=== PATIENT | female | born 1980 | race Caucasian/White ===

== ENCOUNTER 2016-07-12 16:48 | Emergency (ER) | payer BC ==
[~2016-07-12] VITALS: Ht 172.7 cm; Wt 101.9 kg
[~2016-07-12 16:48] MED LIST: CITA40TA12 PO; FRRS300 PO; PRENTAB26 PO; TOPI100T20 PO
[2016-07-12 16:52] VITALS: TEMP 36.9; Ht 172.7 cm; Wt 101.9 kg
[2016-07-12] MEDS ORDERED: DIVA500T59 PO (17:02)
[2016-07-12] MEDS ORDERED: DiphenhydrAMINE HCL 50 MG/ML VIAL IV STA (17:28)
[2016-07-12] MEDS ORDERED: PROCHLORPERAZINE 5 MG/ML 2 ML VIAL IV STA (17:28)
[2016-07-12] MEDS ORDERED: KETOROLAC TROMETHAMINE 30 MG/ML VIAL IV STA (17:28)
[2016-07-12 17:59] LABS: BASO ABS # 0.06 K/uL (0-0.2); COMPLETE YES; EOS % 2.8 %; HEMATOCRIT 38.7 % (37-47); IG% 0.3 %; LYMPH ABS # 2.01 K/uL (1.2-3.4); MEAN CELL VOLUME 91.1 fL (80-100); MEAN CORPUSCULAR HEMOGLOBIN 31.3 pg (25-34); MEAN CORPUSCULAR HGB CONC 34.4 g/dl (32-36); MEAN PLATELET VOLUME 11.4 fL (7.4-10.4); NEUT % 50.9 %; PLATELET COUNT 161 K/uL (130-400); RED BLOOD COUNT 4.25 M/uL (4.2-5.4)
[2016-07-12 18:09] LABS: BUN/CREATININE RATIO 14.1 (10-20); CALCIUM 9.1 mg/dl (8.5-10.1); CREATININE 0.98 mg/dl (0.60-1.20); POTASSIUM 3.9 mmol/L (3.5-5.1)
[2016-07-12] MEDS ORDERED: MAGNESIUM SULFATE 1GM / D5W 1 GM BAG IV STA (18:27)
--- NOTE | 2016-07-12 18:30 | DIAGNOSTIC IMAGING REPORT ---
HEAD CT NONCONTRAST CT DOSE: 537.48 mGy.cm HISTORY: Headache. TECHNIQUE: Multiaxial CT images of the head were performed without the use of intravenous contrast. Automated exposure control was utilized for this study. Comparison: Head CT 07/23/2012. Findings: The paranasal sinuses and mastoid air cells are clear. The calvarium and skull base are intact. The ventricles and sulci are within normal limits. There is no mass, hematoma, midline shift, or acute infarct. Impression: No acute intracranial abnormality. Electronically signed by: Samym Bazan M.D. 07/12/2016 6:28 PM Dictated Date/Time: 07/12/2016 6:25 PM
[2016-07-12 20:17] VITALS: BP 116/74; PULSE 86; O2SAT 96
--- NOTE | 2016-07-12 23:20 | EMERGENCY ROOM VISIT NOTE ---
History Report prepared by Maureen: Zion Viveros Under the Supervision of: Dr. Margarito Medel D.O. First contact with patient: 17:02 Chief Complaint: HEADACHE Stated Complaint: MIGRAINE, SEVERE PRESSURE LT SIDE-DR REFERRED History of Present Illness The patient is a 36 year old female who presents to the Emergency Room with complaints of a waxing and waning left-sided headache beginning one month prior to arrival. She describes the pain as pressure and currently rates her discomfort as 7/10 in severity. The patient associates worsening vision in her left eye which has been waxing and waning with worsening of her headache for the past several weeks. She notes she has been experiencing migraines since 2010 , and she has been following with her neurologist since that time. The patient states her migraines have been worsening over the past six months. She notes her vision has been worsening over the past several weeks, but has been experiencing symptoms for over a year. The patient states it takes a longer amount of time for her left eye to focus. She notes she takes Depakote twice a day and was switched onto the medication two months ago after previously being on Topamax. The patient states she called her neurologist's office yesterday, who referred the patient to the ED. She notes she tested positive for Lyme Disease over a month ago, as well. Pt denies fevers, numbness or weakness in the arms or legs, chest pain, shortness of breath, nausea, vomiting, diarrhea, pain with urination, and melena. Source of History: patient Onset: one month [employer] Position: head (left sided) Quality: pressure Timing: waxes/wanes Associated Symptoms: + headache Note: Associated symptoms: worsening vision in left eye where it takes longer to focus. Review of Systems See HPI for pertinent positives & negatives. A total of 10 systems reviewed and were otherwise negative. Past Medical & Surgical Medical Problems: (1) ACL tear (2) Bronchitis (3) Lyme disease (4) Pneumonia (5) Post-dates (6) Uterine contractions at greater than 20 weeks of gestation Family History Cancer Diabetes mellitus Gallbladder disease Hypertension Kidney disease Kidney stones Social History Smoking Status: Former Smoker Alcohol Use: none Marital Status: Housing Status: lives with family Current/Historical Medications Scheduled Citalopram Hydrobromide (Celexa), 1 TAB PO DAILY Divalproex Sodium (Depakote), 1 TAB PO BID Allergies Coded Allergies: Sumatriptan (Verified Allergy, Severe, throat closes up, 07/12/16) Physical Exam Vital Signs Date Time Temp Pulse Resp B/P Pulse Ox O2 Delivery O2 Flow Rate FiO2 07/12/16 20:17 86 18 116/74 96 07/12/16 19:16 75 07/12/16 18:44 82 16 128/66 96 Room Air 07/12/16 16:52 36.9 83 18 155/88 96 Room Air Physical Exam GENERAL: sitting up in bed, disheveled, no acute distress, non-toxic. EYE EXAM: normal conjunctiva, PERRL and EOM's intact OROPHARYNX: no exudate, no erythema, lips, buccal mucosa, and tongue normal and mucous membranes are moist NECK: Negative Brudzinski. Supple, no nuchal rigidity, no adenopathy, non-tender LUNGS: Clear to auscultation. Normal chest wall mechanics HEART: no murmurs, S1 normal and S2 normal ABDOMEN: abdomen soft, non-tender, normo-active bowel sounds, no masses, no rebound or guarding. BACK: Back is symmetrical on inspection and there is no deformity, no midline tenderness, no CVA tenderness. SKIN: no rashes and no bruising UPPER EXTREMITIES: upper extremities are grossly normal. LOWER EXTREMITIES: No pitting edema. NEURO EXAM: Normal sensorium, cranial nerves II-XII intact, normal speech, no weakness of arms, no weakness of legs. No drift. Finger to nose intact. Gross sensation intact. Medical Decision & Procedures ER Provider Diagnostic Interpretation: CT:Per my review, radiologist interpretation. HEAD CT NONCONTRAST CT DOSE: 537.48 mGy.cm HISTORY: Headache. TECHNIQUE: Multiaxial CT images of the head were performed without the use of intravenous contrast. Automated exposure control was utilized for this study. Comparison: Head CT 07/23/2012. Findings: The paranasal sinuses and mastoid air cells are clear. The calvarium and skull base are intact. The ventricles and sulci are within normal limits. There is no mass, hematoma, midline shift, or acute infarct. Impression: No acute intracranial abnormality. Electronically signed by: Sammy Bazan M.D. 07/12/2016 6:28 PM Laboratory Results 07/12/16 17:30 Red Blood Count 4.25, Mean Corpuscular Volume 91.1, Mean Corpuscular Hemoglobin 31.3, Mean Corpuscular Hemoglobin Concent 34.4, Mean Platelet Volume 11.4, Neutrophils (%) (Auto) 50.9, Lymphocytes (%) (Auto) 33.0, Monocytes (%) (Auto) 12.0, Eosinophils (%) (Auto) 2.8, Basophils (%) (Auto) 1.0, Neutrophils # (Auto ) 3.11, Lymphocytes # (Auto) 2.01, Monocytes # (Auto) 0.73, Eosinophils # (Auto ) 0.17, Basophils # (Auto) 0.06 07/12/16 17:30 Test 07/12/16 17:30 White Blood Count 6.10 K/uL (4.8-10.8) Red Blood Count 4.25 M/uL (4.2-5.4) Hemoglobin 13.3 g/dL (12.0-16.0) Hematocrit 38.7 % (37-47) Mean Corpuscular Volume 91.1 fL (80-100) Mean Corpuscular Hemoglobin 31.3 pg (25-34) Mean Corpuscular Hemoglobin Concent 34.4 g/dl (32-36) Platelet Count 161 K/uL (130-400) Mean Platelet Volume 11.4 fL (7.4-10.4) Neutrophils (%) (Auto) 50.9 % Lymphocytes (%) (Auto) 33.0 % Monocytes (%) (Auto) 12.0 % Eosinophils (%) (Auto) 2.8 % Basophils (%) (Auto) 1.0 % Neutrophils # (Auto) 3.11 K/uL (1.4-6.5) Lymphocytes # (Auto) 2.01 K/uL (1.2-3.4) Monocytes # (Auto) 0.73 K/uL (0.11-0.59) Eosinophils # (Auto) 0.17 K/uL (0-0.5) Basophils # (Auto) 0.06 K/uL (0-0.2) RDW Standard Deviation 43.3 fL (36.4-46.3) RDW Coefficient of Variation 13.0 % (11.5-14.5) Immature Granulocyte % (Auto) 0.3 % Immature Granulocyte # (Auto) 0.02 K/uL (0.00-0.02) Anion Gap 6.0 mmol/L (3-11) Est Creatinine Clear Calc Drug Dose 100.0 ml/min Estimated GFR () 86.6 Estimated GFR (Non- 74.7 BUN/Creatinine Ratio 14.1 (10-20) Calcium Level 9.1 mg/dl (8.5-10.1) Chemistry Specimen Hemolysis Laboratory results per my review. Medications Administered Medications (Trade) Dose Ordered Sig/[place] Route Start Time Stop Time Status Last Admin Dose Admin Diphenhydramine HCl (Benadryl Inj) 50 mg NOW STAT IV 07/12/16 17:28 07/12/16 17:29 DC 07/12/16 17:44 50 MG Prochlorperazine Edisylate (Compazine Inj) 5 mg NOW STAT IV 07/12/16 17:28 07/12/16 17:29 DC 07/12/16 17:42 5 MG Ketorolac Tromethamine (Toradol Inj) 30 mg NOW STAT IV 07/12/16 17:28 07/12/16 17:29 DC 07/12/16 17:42 30 MG Magnesium Sulfate (Magnesium Sulfate) 1 gm NOW STAT IV 07/12/16 18:27 07/12/16 18:28 DC 07/12/16 18:43 1 GM ED Course ED COURSE: Vital signs were reviewed and showed hypertension. The patients medical record was reviewed The above diagnostic studies were performed and reviewed. ED treatments and interventions as stated above. 1703: The patient was evaluated in room C1B. A complete history and physical examination was performed. 1728: Ordered Toradol Inj 30 mg IV, Compazine Inj 5 mg IV, Benadryl Inj 50 mg IV. 1758: Updated the patient at this time. 1822: Reevaluated the patient at this time. 1826: Ordered Magnesium Sulfate 1 gm IV. 1920: Reevaluated and updated the patient at this time. She notes her vision is currently back to normal. The patient states her vision waxes and wanes as the headache worsens. 2000: Upon reevaluation, the patient is doing well.I discussed my findings with the patient and she understands and agrees with the treatment plan. Based on the patients age, coexisting illnesses, exam and lab findings the decision to treat as an outpatient was made. The patient remained stable while under my care. The patient appeared well at the time of discharge. Medical Decision Differential Diagnosis includes but is not limited to headache, tension headache , cluster headache, migraine, subarachnoid hemorrhage, meningitis, mass, central venous thrombus, concussion, trauma and epidural/subdural hemorrhage. Patient is a 36-year-old female who presents the ER for headache. She notes that she has been getting these headaches since 2010. Recently over the past several months they have been worsening. She gets them every day and this headache is unchanged from her typical headaches. She does admit that it is associated with trouble focusing initially out of her left eye and that this waxes and wanes with intensity of her headache. She was referred in by the nurse of her neurologist. She was supposed be seen yesterday but decided to come in today. No fevers. She is completely neurologically intact on exam. Discussed with neurology and they agree with plan of fluids, Toradol, Benadryl, Compazine, magnesium and CT. Workup was unremarkable. Patient was feeling significant better was discharged follow-up with her neurologist. Discussed with Pt concerning signs and symptoms to watch out for. Pt was instructed to follow up with their PCP and discussed with the patient their option to return to the ED at anytime for persistent or worsening symptoms. The appropriate anticipatory guidance and out-patient management, including indications for return to the emergency department, were explained at length to the patient and understood. Impression Primary Impression: Headache Scribe Attestation The scribe's documentation has been prepared under my direction and personally reviewed by me in its entirety. I confirm that the note above accurately reflects all work, treatment, procedures, and medical decision making performed by me. Departure Information Dispostion Home / Self-Care Referrals No Doctor, Assigned (PCP) Forms HOME CARE DOCUMENTATION FORM, IMPORTANT VISIT INFORMATION Patient Instructions Headache Pain, My [facility] Additional Instructions Please follow up with your primary care doctor with in the next 24 hours. Any worsening of your symptoms, please return to the ED immediately. This includes weakness or numbness in arms or legs, change in vision, confusion, or any other concerning signs or symptoms from your standpoint. Please follow up with neurology tomorrow in regards to increasing your Depakote. Problem Qualifiers Primary Impression: Headache Headache type: unspecified Headache chronicity pattern: acute headache Intractability: not intractable Qualified Codes: R51 - Headache
== END 2016-07-12 20:17 | disposition home or self-care (01) ==
LOC: C.EDB 16:51 → C.EDC 20:17
DX: R51 Headache (principal); H53.9 Unspecified visual disturbance; A69.20 Lyme disease, unspecified; Z87.891 Personal history of nicotine dependence; Z83.3 Family history of diabetes mellitus; Z82.49 Family history of ischemic heart disease and other diseases of the circulatory system; Z84.1 Family history of disorders of kidney and ureter

== ENCOUNTER 2017-06-29 06:49 | Observation (INO) | payer BC, OTHER ==
[2017-06-19 12:59] VITALS: Ht 172.7 cm; Wt 105.5 kg
--- NOTE | 2017-06-19 13:23 | PAT Medication Instructions ---
Service Date Jun 19, 2017. Current Home Medication List Citalopram Hydrobromide (Celexa), 1 TAB PO QPM Propranolol La (Inderal La), 120 MG PO BID Medication Instructions For Your Scheduled Surgery - Take the following medications the morning of surgery with a sip of water: Propranolol La (Inderal La), 120 MG PO BID - Take the following medications as scheduled the night before surgery: Citalopram Hydrobromide (Celexa), 1 TAB PO QPM Propranolol La (Inderal La), 120 MG PO BID If you have any questions please call us at [phone] or [phone] or [phone]
[2017-06-19 15:38] LABS: BASO % 0.5 %; BASO ABS # 0.04 K/uL (0-0.2); EOS % 2.2 %; EOS ABS # 0.17 K/uL (0-0.5); HEMATOCRIT 42.6 % (37-47); HEMOGLOBIN 14.6 g/dL (12.0-16.0); IG# 0.02 K/uL (0.00-0.02); LYMPH % 25.3 %; LYMPH ABS # 1.99 K/uL (1.2-3.4); MEAN CELL VOLUME 89.5 fL (80-100); MEAN CORPUSCULAR HEMOGLOBIN 30.7 pg (25-34); MEAN CORPUSCULAR HGB CONC 34.3 g/dl (32-36); MONO % 7.5 %; MONO ABS # 0.59 K/uL (0.11-0.59); NEUT % 64.2 %; NEUT ABS # 5.06 K/uL (1.4-6.5); PLATELET COUNT 215 K/uL (130-400); RED CELL DISTRIBUTION WIDTH CV 13.1 % (11.5-14.5); WHITE BLOOD COUNT 7.87 K/uL (4.8-10.8)
[2017-06-19 16:32] LABS: ALBUMIN 3.8 gm/dl (3.4-5.0); CALCIUM 8.9 mg/dl (8.5-10.1); POTASSIUM 3.7 mmol/L (3.5-5.1)
[2017-06-19 16:35] LABS: TOTAL PROTEIN 7.6 gm/dl (6.4-8.2)
[2017-06-29] VITALS (8 sets, daily range): BP systolic 97–140; BP diastolic 50–69; PULSE 81–101; TEMP 37–37.3; O2SAT 95–98
[~2017-06-29] VITALS: Ht 172.7 cm; Wt 105.5 kg
[~2017-06-29 06:49] MED LIST changes: +CEFAZOLIN 2000MG IV PUSH 15 ML IV SCH; -FRRS300 PO; +INDSR/120 PO; +LACTATED RINGER'S 1000ML 1,000 ML IV SCH; -PRENTAB26 PO; -TOPI100T20 PO
[2017-06-29] MEDS ORDERED: ONDANSETRON INJ 2 MG/ML 2 ML VIAL ONE ×2 (07:13→10:34)
[2017-06-29] MEDS ORDERED: LIDOCAINE HCL 2% 2 ML VIAL (20MG/ML) ONE (07:13)
[2017-06-29] MEDS ORDERED: PROPOFOL IV EMULSION 10 MG/ML 20 ML VIAL IV ONE (07:13)
[2017-06-29] MEDS ORDERED: NEOSTIGMINE METHYLSULFATE 5 MG/5 ML SYR ONE (07:13)
[2017-06-29] MEDS ORDERED: DEXAMETHASONE SOD INJ 4 MG/ML VIAL ONE (07:13)
[2017-06-29] MEDS ORDERED: GLYCOPYRROLATE INJ 0.2 MG/ML VIAL ONE ×2 (07:13→10:40)
[2017-06-29] MEDS ORDERED: MIDAZOLAM HCL 1 MG/ML 2ML VIAL ONE (07:14)
[2017-06-29] MEDS ORDERED: FENTANYL CITRATE INJ 50 MCG/1 ML 2 ML VIAL ONE (07:14)
[2017-06-29] MEDS ORDERED: ROCURONIUM BROMIDE 10 MG/ML 5 ML VIAL IV ONE (07:53)
[2017-06-29] MEDS ORDERED: HYDROmorphone INJ 2 MG/ML SYR/VIAL ONE (07:54)
--- NOTE | 2017-06-29 07:59 | History & Physical Bridge Note ---
H&P Re-Evaluation Bridge Note: I have examined the patient, reviewed the History & Physical and in the interval since the performance of the History & Physical I have noted the following changes of clinical significance: No changes noted
[2017-06-29] MEDS ORDERED: EpHEDrine SULFATE INJ 50 MG/ML AMP IV PRN (08:00)
[2017-06-29] MEDS ORDERED: ONDANSETRON INJ 2 MG/ML 2 ML VIAL IV PRN ×2 (08:00→11:45)
[2017-06-29] MEDS ORDERED: PROMETHAZINE HCL INJ 6.25 MG in SODIUM CHLORIDE 0.9% 50ML 50 ML IV PRN (08:00)
[2017-06-29] MEDS ORDERED: HYDROmorphone INJ 1 MG/ML SYR IV PRN (08:00)
[2017-06-29] MEDS ORDERED: ATROPINE SULFATE 0.1 MG/ML 5ML SYR IV PRN (08:00)
[2017-06-29] MEDS ORDERED: MINERAL OIL LIGHT 10 ML BTL ONE (08:24)
[2017-06-29] MEDS ORDERED: LIDOCAINE HCL 1% 20 ML VIAL ONE (08:25)
[2017-06-29] MEDS ORDERED: BUPIVACAINE/EPINEPHRINE 0.5% MPF 1:200,000 30 ML VIAL ONE (08:25)
[2017-06-29] MEDS ORDERED: METHYLENE BLUE 0.5% 10 ML VIAL ONE (08:25)
[2017-06-29] MEDS ORDERED: KETOROLAC TROMETHAMINE 30 MG/ML VIAL ONE (10:39)
[2017-06-29] MEDS: FENTANYL CITRATE INJ 50 MCG/1 ML 2 ML VIAL IV PRN ×2 (11:30→11:35)
[2017-06-29] MEDS ORDERED: LACTATED RINGER'S 1000ML 1,000 ML IV SCH (11:41)
[2017-06-29] MEDS ORDERED: MAGNESIUM HYDROXIDE SUSP 30 ML UDC PO PRN (11:45)
[2017-06-29] MEDS ORDERED: PROMETHAZINE HCL INJ 12.5 MG in SODIUM CHLORIDE 0.9% 50ML 50 ML IV PRN (11:45)
[2017-06-29] MEDS ORDERED: PROMETHAZINE HCL INJ 25 MG in SODIUM CHLORIDE 0.9% 50ML 50 ML IV PRN (11:45)
[2017-06-29] MEDS ORDERED: SIMETHICONE 80 MG CHEW PO PRN (11:45)
[2017-06-29] MEDS ORDERED: OXYCODONE/ACETAMINOPHEN 5-325 TAB PO PRN (11:45)
[2017-06-29] MEDS ORDERED: BISACODYL 10 MG SUPP PR PRN (11:45)
[2017-06-29] MEDS ORDERED: ZOLPIDEM TARTRATE 5 MG TAB PO PRN (11:45)
[2017-06-29] MEDS ORDERED: ACETAMINOPHEN 1000 MG/100 ML IV IV ONE (11:55)
--- NOTE | 2017-06-29 11:59 | Anesthesiology Progress Note ---
Anesthesia Post Op Note Date & Time Jun 29, 2017 at 11:59 Vital Signs Pain Intensity: 3 Vital Signs Past 12 Hours Date Time Temp Pulse Resp B/P (MAP) Pulse Ox O2 Delivery O2 Flow Rate FiO2 06/29/17 11:50 36.0 99 14 150/72 96 Oxymask 3 06/29/17 11:40 92 16 144/67 93 Oxymask 3 06/29/17 11:30 91 14 156/57 99 Oxymask 10 06/29/17 11:20 96 18 145/83 99 Oxymask 10 06/29/17 11:11 36.0 99 18 142/85 97 Oxymask 10 06/29/17 07:14 37.2 82 18 140/69 (92) 96 Room Air Notes Mental Status: alert / awake / arousable, participated in evaluation Pt Amnestic to Procedure: Yes Nausea / Vomiting: adequately controlled Pain: adequately controlled Airway Patency, RR, SpO2: stable & adequate BP & HR: stable & adequate Hydration State: stable & adequate Anesthetic Complications: no major complications apparent
[2017-06-29] MEDS ORDERED: ACETAMINOPHEN IV 100 ML IV ONE (12:08)
[2017-06-29] MEDS ORDERED: NURSING VERBAL MED ORDER ONE (13:15)
[2017-06-29] MEDS ORDERED: MEPERIDINE HCL 50 MG/ML CARP IV PRN (13:30)
[2017-06-29] MEDS ORDERED: IV FLUIDS COMPLETED PRN (16:00)
[2017-06-29] MEDS: IBUPROFEN 600 MG TAB PO PRN (17:07)
[2017-06-29] MEDS: OXYCODONE/ACETAMINOPHEN 5-325 TAB PO PRN ×2 (17:08→21:14)
[2017-06-29 20:56] LABS: HEMATOCRIT 39.1 % (37-47); HEMOGLOBIN 13.5 g/dL (12.0-16.0)
[2017-06-29] MEDS: DOCUSATE SODIUM 100 MG CAP PO SCH (21:05)
[2017-06-30] MEDS: IBUPROFEN 600 MG TAB PO PRN ×3 (03:09→13:16)
[2017-06-30 03:10] VITALS: BP 119/65; PULSE 87; TEMP 37.2; O2SAT 94
[2017-06-30] MEDS: OXYCODONE/ACETAMINOPHEN 5-325 TAB PO PRN ×3 (03:10→08:00)
[2017-06-30 06:48] LABS: BASO % 0.1 %; BASO ABS # 0.01 K/uL (0-0.2); EOS % 0.4 %; EOS ABS # 0.04 K/uL (0-0.5); HEMATOCRIT 38.5 % (37-47); HEMOGLOBIN 12.9 g/dL (12.0-16.0); IG# 0.03 K/uL (0.00-0.02); LYMPH % 19.1 %; LYMPH ABS # 1.76 K/uL (1.2-3.4); MEAN CELL VOLUME 89.7 fL (80-100); MEAN CORPUSCULAR HEMOGLOBIN 30.1 pg (25-34); MEAN CORPUSCULAR HGB CONC 33.5 g/dl (32-36); MEAN PLATELET VOLUME 10.8 fL (7.4-10.4); MONO % 9.5 %; MONO ABS # 0.88 K/uL (0.11-0.59); NEUT % 70.6 %; PLATELET COUNT 172 K/uL (130-400); RED CELL DISTRIBUTION WIDTH SD 42.5 fL (36.4-46.3); WHITE BLOOD COUNT 9.22 K/uL (4.8-10.8)
[2017-06-30 07:17] LABS: CALCIUM 8.2 mg/dl (8.5-10.1); CREATININE 1.13 mg/dl (0.60-1.20); POTASSIUM 3.3 mmol/L (3.5-5.1)
[2017-06-30] MEDS: DOCUSATE SODIUM 100 MG CAP PO SCH (07:19)
[2017-06-30 08:00] VITALS: BP 126/66; PULSE 74; TEMP 37; O2SAT 96
[2017-06-30] MEDS ORDERED: MTR600X PO (09:34)
[2017-06-30] MEDS ORDERED: OXYC-57 PO (09:34)
--- NOTE | 2017-06-30 09:35 | Discharge Instructions ---
Discharge Instructions Date of Service Jun 30, 2017. Admission Reason for Admission: Menorrhagia, Adenomyosis Discharge Discharge Diagnosis / Problem: s/p Total Laparoscopic hysterectomy, cystoscopy Discharge Goals Goal(s): Routine recovery after surgery Activity Recommendations Activity Limitations: per Instructions/Follow-up section . Instructions / Follow-Up Instructions / Follow-Up POST OPERATIVE: BOWEL FUNCTION/MEDICATIONS: 1. Constipation pain and discomfort are the most common complaints 5-7 days after surgery. Points 2-6 address the things that can help. 2. Chewing gum can help stimulate the gut and help improve digestion and motility. 3. Milk of Magnesia 1-2 times per day until return of bowel function. 4. Colace is a stool softener that helps. Taking this 2-3 times per day until bowel function returns to normal is highly recommended. 5. Dulcolax is a laxative that may be used if several days have passed without a bowel movement. Alternatively Miralax may be used daily instead. 6. Drink plenty of fluids as this will also reduce constipation. 7. Narcotic pain medications will be prescribed by your physician. They are safe to use and we encourage you to use them. If you are not allergic, ibuprofen will also be prescribed. Many patients will be able to transition off of the narcotic medications to ibuprofen by postoperative day 3. ACTIVITY RECOMMENDATIONS: 1. Get plenty of rest and listen to your body. If you are tired, take a nap. 2. You may shower, but do not take a tub bath until you see your doctor at the 2 week post operative visit. 3. Absolutely NO intercourse and nothing in the vagina until you are examined by your doctor at the 6 week visit. At that visit it will be determined when such activities can be resumed. This can range from 6-12 weeks after your surgery depending on healing time. 4. The main physical activity in the first week should be walking. By the second week you can slowly increase activity. There are no limits on walking up and down stairs. 5. Do not lift more than 5-10 lbs for 4 weeks. Remember the "one-handed rule", i.e. if you can lift something with only one hand it's likely okay. 6. Minimize actimize architect like vacuuming and exercising for 4 weeks. "Overdoing it" can lead to incisions not healing, pain and vaginal bleeding , so again, listen to your body. 7. Driving can be resumed when you feel able. Do not drive within 24 hours of taking a narcotic medication. EXPECTATIONS: 1. Vaginal spotting, bleeding and discharge are common after surgery. There may even be an odor to the discharge which is often related to sutures used in the vagina. If you experience heavy vaginal bleeding, call the office number day or night [phone]. 2. Bladder discomfort is common after surgery from the catheter. This usually resolves in 1-2 weeks. 3. By the end of the 3rd or 4th week you should be feeling much better. It may take up to 6 weeks for your energy levels to return to normal. 4. Narcotic medications have side effects such as: dizziness, headache, nausea and/or vomiting. If you suspect your pain medication is causing problems, call our office and we may be able to prescribe an alternate medication. 5. The skin incisions are often covered with a liquid bandage. This will gradually peel off over time. CALL THE OFFICE IF YOU HAVE ANY OF THE FOLLOWIN. Temperature of 101 degrees or higher. 2. Severe abdominal or pelvic pain not relieved by pain medication. 3. Persistent nausea or vomiting. 4. Increased pain with urination or difficulty urinating. 5. Bright red bleeding that soaks more than 1 pad per hour. CONTACT PHONE NUMBERS: Main Office: [phone] FOLLOW-UP: Post-Operative Appointments: * Individual instructions will have been given about the timing of your first examination, but this is usually at the end of the second week home. * You will need to call the office at [phone] soon after discharge to make the appointment for your post-op check-up if it has not already been scheduled. * Additional information regarding activity, sexual intercourse and when to return to work will be given at this appointment. WE WISH YOU A SPEEDY RECOVERY! Current Hospital Diet Patient's current hospital diet: Regular Diet Discharge Diet Recommended Diet: Regular Diet Procedures Procedures Performed: Total Laparoscopic Hysterectomy, Cystoscopy Pending Studies Studies pending at discharge: no Medical Emergencies . Who to Call and When: Medical Emergencies: If at any time you feel your situation is an emergency, please call 911 immediately. . Non-Emergent Contact Non-Emergency issues call your: Primary Care Provider, [employer] . . "Provider Documentation" section prepared by Jacobo Bernal. . [facility] Monitoring Program Search Results: no issues identified
--- NOTE | 2017-06-30 09:46 | Surgery Progress Note ---
Surgery Progress Note Date of Service Jun 30, 2017. Subjective Post OP Day: 1 + feeling well, + pain controlled Doing well. Pain tolerable. Ambulating without difficulty. Minimal vaginal bleeding. Incision dressings clean. Tolerating regular diet. Objective Vital Signs: Date Time Temp Pulse Resp B/P (MAP) Pulse Ox O2 Delivery O2 Flow Rate FiO2 06/30/17 08:00 96 Room Air 06/30/17 08:00 37.0 74 16 126/66 (86) 96 Room Air 06/30/17 03:10 37.2 87 18 119/65 (83) 94 Room Air 06/29/17 23:00 37.1 81 18 130/63 (85) 95 Room Air 06/29/17 23:00 95 Room Air 06/29/17 19:30 37.1 82 16 130/68 (88) 95 Room Air 06/29/17 15:20 37.1 100 18 97/52 (67) 96 Room Air 06/29/17 15:20 96 Room Air 06/29/17 14:20 37.1 101 18 104/50 (68) 97 Nasal Cannula 1.0 06/29/17 13:20 37.0 100 20 106/53 (70) 98 Nasal Cannula 1.0 06/29/17 12:50 89 18 111/62 (78) 98 Nasal Cannula 1.0 06/29/17 12:20 95 Nasal Cannula 1.0 06/29/17 12:20 95 Nasal Cannula 1.0 06/29/17 12:20 37.3 91 18 132/66 (88) 95 Nasal Cannula 1.0 06/29/17 12:00 87 20 122/84 98 Oxymask 3 06/29/17 11:50 36.0 99 14 150/72 96 Oxymask 3 06/29/17 11:40 92 16 144/67 93 Oxymask 3 06/29/17 11:30 91 14 156/57 99 Oxymask 10 06/29/17 11:20 96 18 145/83 99 Oxymask 10 06/29/17 11:11 36.0 99 18 142/85 97 Oxymask 10 General Appearance: WD/WN, no apparent distress Respiratory/Chest: chest non-tender, lungs clear Cardiovascular: regular rate, rhythm Abdomen: normal bowel sounds, soft Incision(s): clean, dry, intact Extremities: normal range of motion, non-tender, no calf tenderness Laboratory Results: Results Past 24 Hours Test 06/29/17 20:45 06/30/17 06:19 Range/Units Hemoglobin 13.5 12.9 12.0-16.0 g/dL Hematocrit 39.1 38.5 37-47 % White Blood Count 9.22 4.8-10.8 K/uL Red Blood Count 4.29 4.2-5.4 M/uL Mean Corpuscular Volume 89.7 80-100 fL Mean Corpuscular Hemoglobin 30.1 25-34 pg Mean Corpuscular Hemoglobin Concent 33.5 32-36 g/dl Platelet Count 172 130-400 K/uL Mean Platelet Volume 10.8 7.4-10.4 fL Neutrophils (%) (Auto) 70.6 % Lymphocytes (%) (Auto) 19.1 % Monocytes (%) (Auto) 9.5 % Eosinophils (%) (Auto) 0.4 % Basophils (%) (Auto) 0.1 % Neutrophils # (Auto) 6.50 1.4-6.5 K/uL Lymphocytes # (Auto) 1.76 1.2-3.4 K/uL Monocytes # (Auto) 0.88 0.11-0.59 K/uL Eosinophils # (Auto) 0.04 0-0.5 K/uL Basophils # (Auto) 0.01 0-0.2 K/uL RDW Standard Deviation 42.5 36.4-46.3 fL RDW Coefficient of Variation 13.0 11.5-14.5 % Immature Granulocyte % (Auto) 0.3 % Immature Granulocyte # (Auto) 0.03 0.00-0.02 K/uL Sodium Level 141 136-145 mmol/L Potassium Level 3.3 3.5-5.1 mmol/L Chloride Level 109 98-107 mmol/L Carbon Dioxide Level 25 21-32 mmol/L Anion Gap 7.0 3-11 mmol/L Blood Urea Nitrogen 13 7-18 mg/dl Creatinine 1.13 0.60-1.20 mg/dl Est Creatinine Clear Calc Drug Dose 87.5 ml/min Estimated GFR () 72.4 Estimated GFR (Non- 62.5 BUN/Creatinine Ratio 11.7 10-20 Random Glucose 120 70-99 mg/dl Calcium Level 8.2 8.5-10.1 mg/dl Assessment & Plan POD# 1 s/p TLH, cystoscopy -Advance activity as tolerated -H&H stable this morning -D/C home this afternoon. -F/U in office in 1-2 weeks regular diet
[2017-06-30 10:59] VITALS: BP 126/66; PULSE 74; TEMP 37; O2SAT 96
--- NOTE | 2017-07-02 07:44 | OPERATIVE REPORT ---
DATE OF OPERATION: 06/29/2017 INDICATION FOR PROCEDURE: This is a 37-year-old with menometrorrhagia for several years. Patient has history of migraines and has declined OCP use. She was offered endometrial ablation and declined as well. After extensive consultation, patient was scheduled for hysterectomy. Ultrasound was suspicious for adenomyosis of the uterus. PREOPERATIVE DIAGNOSES: 1. Menometrorrhagia onset for several years. 2. Adenomyosis from ultrasound. 3. Patient declined medical therapy including oral contraceptive pills, intrauterine devices, Depo-Provera. 4. Patient has history of migraines. 5. Patient declined endometrial ablation as well. POSTOPERATIVE DIAGNOSES: 1. Menometrorrhagia onset for several years. 2. Adenomyosis from ultrasound. 3. Patient declined medical therapy including oral contraceptive pills, intrauterine devices, Depo-Provera. 4. Patient has history of migraines. 5. Patient declined endometrial ablation as well. PROCEDURE: 1. Total laparoscopic hysterectomy. 2. Cystoscopy. SURGEON: Sawyer Maravilla MD BAND MASTER: Jacobo Bernal DO. ESTIMATED BLOOD LOSS: 100 mL. IV FLUIDS: 1300 mL URINE OUTPUT: 100 mL clear urine at end of the procedure. FINDINGS: Normal female escutcheon. Uterus is about 12 weeks' size. Adnexa appeared grossly normal. There were no significant adhesions in the abdomen or pelvis. PATHOLOGY: Uterus and cervix. DRAINS: None. COMPLICATIONS: None. DISPOSITION: Stable to recovery room. DESCRIPTION OF PROCEDURE: Patient was taken to the operating room where she was prepped and draped in normal sterile fashion after time-out was called. An infraumbilical incision was made with a scalpel after local anesthesia was given to that site. Fascia was grabbed with 2 Kochers and a Veress needle was introduced into the abdomen at a 45 degree angle. A syringe filled with saline was attached to the Veress needle. The water-filled syringe enabled me to confirm abdominal placement. Once abdominal placement was confirmed, 4 liters of CO2 gas was used to insufflate the abdomen. The Veress needle was removed and a trocar introduced into the abdomen at a 45 degree angle while tenting up the abdomen. This was done under direct visualization. Three other accessory ports were placed under direct visualization. Two were 10 mm trocars and the other 2 were 5 mm trocars. The patient was placed in Trendelenburg position and the abdomen and pelvis evaluated. Findings are as dictated above. Prior to this part of the procedure, the uterine manipulator had been placed inside the uterus and sutured in place with Vicryl. The uterine manipulator was the VCare uterine manipulator. Boucher catheter was also in place. The uterus could now be manipulated from below using the uterine manipulator. The round ligament on both sides were identified, grabbed and fulgurated using the 5 mm LigaSure device. The vesicouterine peritoneum was dissected using the 5 mm trocar. The infundibulopelvic on both sides were grabbed and fulgurated. The broad ligament was skeletonized both sides. The uterosacrals on both sides could be identified and was fulgurated as well. The dissection proceeded down towards the cervix, the 5 mm each time was used to grab along the direction of the cervix and fulgurated and cut. There was good hemostasis. The VCare could not be palpated. A circumferential incision was performed along the lines of the VCare using the hook attached to the 5-mm trocar. This was done successfully and carefully, there was good hemostasis. The uterus was now removed through the vagina. A glove filled with sponge was placed into the vagina to help maintain pneumoperitoneum. Copious amount of irrigation was used to irrigate the abdomen. There was good hemostasis at the colpotomy site. The EndoStitch was passed through the accessory port and the colpotomy closed in a locking fashion using 0 Vicryl. There was good hemostasis. The peritoneum was also closed in a running fashion using Vicryl stitch. More irrigation was used to irrigate the abdomen and at this point there was good hemostasis as well. Attention was paid to the cystoscopy part of the procedure where a 30 degree cystoscope was used to evaluate the bladder. There was no blood, masses or sutures seen in the bladder cavity. Both ureteral orifices were identified and the patient had been given methylene blue earlier. We could see the methylene blue jetting out of both ureteral orifices. All instruments were removed from the vagina including retractors, sutures, and the glove used to maintain pneumoperitoneum. A new Boucher catheter was placed into the bladder. Attention was paid back to the abdominal part of the procedure where the 10-mm incision sites were closed in 2 layers, the fascia was grabbed from each incision and closed with 0 Vicryl. Skin incision was closed with 4-0 Monocryl. Patient was returned to recovery room in stable condition. I attest to the content of the Intraoperative Record and any orders documented therein. Any exceptions are noted below. MTDD
--- NOTE | 2017-07-02 13:18 | DISCHARGE SUMMARY ---
CHIEF COMPLAINT: 1. Menorrhagia. 2. Adenomyosis. HISTORY OF PRESENT ILLNESS: This is a 37-year-old G4, P3 with a 2-day history of menorrhagia. The patient was seen in the office. She was offered medical therapy and ablation. The patient declined both. She has history of migraines and she was not interested in doing any hormonal therapy. The patient decided to undergo total laparoscopic hysterectomy. Procedure was performed on 06/29/2017. Details of the procedure are in the surgical note. Surgery was unremarkable. The patient did well. She was kept in observation and discharged home 06/30/2017. The care during observation was unremarkable. The patient was discharged home in stable condition with instructions on 06/30/2017. PAST MEDICAL HISTORY: 1. History of migraines. 2. History of mononucleosis. PAST SURGICAL HISTORY: History of elective termination of . FAMILY HISTORY: History of melanoma, PCOS, and hypertension. SOCIAL HISTORY: The patient is a former smoker. Denies drug or alcohol use. ALLERGIES: ALLERGIC TO SUMATRIPTAN. REVIEW OF SYSTEMS: Negative except as dictated in the HPI. PHYSICAL EXAMINATION: VITAL SIGNS: Vitals on 06/30/2017 as follows: Temperature is 37.0, pulse is 74, respirations 16, blood pressure is 126/66. HEART: S1, S2, regular rhythm and rate. LUNGS: Clear to auscultation bilaterally. ABDOMEN: Nontender, nondistended, positive bowel sounds. Incisions sites are clean, dry, and intact. EXTREMITIES: No cyanosis, clubbing or edema. LABORATORY DATA: Hemoglobin is 12.9, hematocrit is 38.5, platelets are 172,000. CONDITION ON DISCHARGE: Stable. OPERATIONS: Total laparoscopic hysterectomy and cystoscopy. DISCHARGE DIAGNOSIS: Postop total laparoscopic hysterectomy and cystoscopy. PLAN ON DISCHARGE: The patient is discharged home with instructions regarding activity, diet, followup appointment, and medications.
== END 2017-06-30 13:39 | disposition home or self-care (01) ==
LOC: C.ACU 06:49 → C.MS4N 11:57
PROVIDERS: ADMIT Obstetrics & Gynecology; ATTEND Obstetrics & Gynecology
DX: N92.0 Excessive and frequent menstruation with regular cycle (principal); D25.2 Subserosal leiomyoma of uterus; Z87.891 Personal history of nicotine dependence; Z80.8 Family history of malignant neoplasm of other organs or systems; Z82.49 Family history of ischemic heart disease and other diseases of the circulatory system; Z84.2 Family history of other diseases of the genitourinary system; Z80.41 Family history of malignant neoplasm of ovary

== ENCOUNTER 2017-11-07 15:46 | Emergency (ER) | payer BC, OTHER ==
[~2017-11-07] VITALS: Ht 172.7 cm; Wt 94.7 kg
[~2017-11-07 15:46] MED LIST changes: -CEFAZOLIN 2000MG IV PUSH 15 ML IV SCH; -LACTATED RINGER'S 1000ML 1,000 ML IV SCH; +MTR600X PO; +OXYC-57 PO
[2017-11-07 15:54] VITALS: TEMP 36.8; Ht 172.7 cm; Wt 94.7 kg
[2017-11-07] MEDS ORDERED: DiphenhydrAMINE HCL 50 MG/ML VIAL IV STA (16:12)
[2017-11-07] MEDS ORDERED: SODIUM CHLORIDE 0.9% 1000ML 1,000 ML IV STA (16:12)
[2017-11-07] MEDS ORDERED: PROCHLORPERAZINE INJ 10 MG in SYRINGE 8 ML IV STA (16:12)
[2017-11-07] MEDS ORDERED: KETOROLAC TROMETHAMINE 30 MG/ML VIAL IV STA (16:12)
[2017-11-07] MEDS ORDERED: PROCHLORPERAZINE 5 MG/ML 2 ML VIAL ONE (16:28)
[2017-11-07] MEDS ORDERED: TPM100 PO (16:41)
[2017-11-07] MEDS ORDERED: CITA40TA4 PO (16:41)
--- NOTE | 2017-11-07 17:13 | EMERGENCY ROOM VISIT NOTE ---
History Report prepared by Maureen: Pablo Casillas Under the Supervision of: Dr. Brian Giles M.D. First contact with patient: 16:09 Chief Complaint: HEADACHE Stated Complaint: MIGRAINE FOR 4 DAYS History of Present Illness The patient is a 37 year old female who presents to the Emergency Room with complaints of a persistent headache for the past 4 days. The patient reports a history of migraines, and states her current symptoms feel like a migraine. She states that pain is located on both sides of her head and rates her current pain at a 10/10 in severity. The patient notes that she regularly takes Topamax , and tried taking Tylenol yesterday with no improvement. She notes current nausea and some diaphoresis. She states that she is unable to think of triggers for her current headache. The patient denies head trauma. She reports that she had a hysterectomy in June. Source of History: patient Onset: 4 days ago Position: head Symptom Intensity: 10/10 Quality: other (headache) Timing: other (persistent) Associated Symptoms: + diaphoresis, + nausea Note: denies head trauma Review of Systems See HPI for pertinent positives & negatives. A total of 10 systems reviewed and were otherwise negative. Past Medical & Surgical Medical Problems: (1) ACL tear (2) Bronchitis (3) Lyme disease (4) Menorrhagia (5) Pneumonia (6) Post-dates (7) Uterine contractions at greater than 20 weeks of gestation Surgical Problems: (1) History of hysterectomy Family History Cancer Diabetes mellitus Gallbladder disease Hypertension Kidney disease Kidney stones Social History Smoking Status: Current Every Day Smoker Alcohol Use: none Marital Status: Housing Status: lives with family Current/Historical Medications Scheduled Citalopram (Citalopram Hydrobromide), 40 MG PO DAILY Topiramate (Topiramate), 200 MG PO DAILY Scheduled PRN Ibuprofen (Ibuprofen), 600 MG PO Q6H PRN for Pain,ALEJO,cramping,or fever Allergies Coded Allergies: Sumatriptan (Verified Allergy, Severe, throat closes up, 11/07/17) Physical Exam Vital Signs Date Time Temp Pulse Resp B/P (MAP) Pulse Ox O2 Delivery O2 Flow Rate FiO2 11/07/17 17:22 69 16 131/68 100 11/07/17 15:54 36.8 82 20 123/76 98 Room Air Physical Exam GENERAL: Patient is in no acute distress. HEENT: No acute trauma, normocephalic atraumatic, mucous membranes moist, no nasal congestion, no scleral icterus. Pupils equal and reactive to light. NECK: No stridor, no adenopathy, no meningismus, trachea is midline. LUNGS: Clear to auscultation bilaterally, no wheeze, no rhonchi, breath sounds equal. HEART: Without murmurs gallops or rubs, regular rate and rhythm. ABDOMEN: Soft, nontender, bowel sounds positive, no hernias, no peritonitis. EXTREMITIES: No cyanosis or edema, full range of motion of all the joints without pain or difficulty, no signs for acute trauma. NEUROLOGIC: Oriented x 3, no acute motor or sensory deficits, no focal weakness. No cerebellar deficits. SKIN: No rash, no jaundice, no diaphoresis Medical Decision & Procedures Medications Administered Medications (Trade) Dose Ordered Sig/[place] Route Start Time Stop Time Status Last Admin Dose Admin Sodium Chloride 1,000 ml @ 999 mls/hr Q1H1M STAT IV 11/07/17 16:12 11/07/17 17:12 DC 11/07/17 16:33 999 MLS/HR Prochlorperazine Edisylate 10 mg/ Syringe 10 ml @ 5 mls/min NOW STAT IV 11/07/17 16:12 11/07/17 16:16 DC 11/07/17 16:12 5 MLS/MIN Diphenhydramine HCl (Benadryl Inj) 50 mg NOW STAT IV 11/07/17 16:12 11/07/17 16:16 DC 11/07/17 16:34 50 MG Ketorolac Tromethamine (Toradol Inj) 30 mg NOW STAT IV 11/07/17 16:12 11/07/17 16:16 DC 11/07/17 16:35 30 MG ED Course 1610: The patient was evaluated in room C8. A complete history and physical exam was performed. 1612: Ordered Toradol 30 mg IV, Benadryl 50 mg IV, Prochlorperazine Edisylate 10 mg/Syringe 10 ml @ 5 mls/min IV, Sodium Chloride 1000 ml @ 999 mls/hr 1708: Reevaluated the patient, who is feeling better. Discussed results and discharge instructions: She verbalized understanding and agreement. The patient is ready for discharge. Medical Decision Differential diagnosis: migraine headache, dehydration, intracranial bleeding, stroke, head trauma, meningitis, tension headache Patient presents with a headache that she feels is a migraine. On exam, she has no focal neurologic deficits. She is not febrile or toxic. There is no meningismus. She has not suffered head trauma. The patient received IV saline, IV Toradol, IV Compazine and IV Benadryl. She feels improved and is resting comfortably. She is being discharged in the care of her . Rest, hydration were encouraged. If worsening, she can return. Her headache is very likely migrainous. Medication Reconcilliation Current Medication List: was personally reviewed by me Blood Pressure Screening Patient's blood pressure: Normal blood pressure Blood pressure disposition: Did not require urgent referral Impression Primary Impression: Headache Scribe Attestation The scribe's documentation has been prepared under my direction and personally reviewed by me in its entirety. I confirm that the note above accurately reflects all work, treatment, procedures, and medical decision making performed by me. Departure Information Dispostion Home / Self-Care Referrals No Doctor, Assigned (PCP) Forms HOME CARE DOCUMENTATION FORM, IMPORTANT VISIT INFORMATION Patient Instructions My [facility] Additional Instructions fluids rest return if worsening tylenol for pain
[2017-11-07 17:22] VITALS: BP 131/68; PULSE 69; O2SAT 100
== END 2017-11-07 17:22 | disposition home or self-care (01) ==
LOC: C.EDB 15:48 → C.EDC 17:22
DX: G43.909 Migraine, unspecified, not intractable, without status migrainosus (principal); F17.200 Nicotine dependence, unspecified, uncomplicated; Z79.899 Other long term (current) drug therapy